=== PATIENT | female | born 1985 | race Caucasian/White ===

== ENCOUNTER 2021-06-06 06:23 | Inpatient (IN) ==
[2021-06-06] MEDS ORDERED: LIDOCAINE 1% LOCAL 20 ML VIAL ONE (06:33)
[2021-06-06] MEDS ORDERED: OXYTOCIN 30 UNITS/500 ML BAG IV PRN ×2 (06:41→07:01)
[2021-06-06] MEDS ORDERED: OXYTOCIN 10 UNITS/ML 10ML VIAL IM ONE (06:41)
[2021-06-06] MEDS ORDERED: LACTATED RINGER'S 1,000 ML IV PRN (06:41)
--- NOTE | 2021-06-06 06:59 | Delivery Summary ---
Vaginal Delivery Summary Date of Service June 06, 2021 Vaginal Delivery Summary (Delivered patient only; for [facility] who were not in-house although this was their patient) DIAGNOSES: 1. Martinez intrauterine at 39 1/7 gestation. 2. Spontaneous onset of labor. 3. Group B Streptococcus Pos. PROCEDURE: Spontaneous vaginal delivery and repair of left labial and second degree perineal laceration. SURGEON: Celsa Miranda MD. ROLLED HAM LACER: None. ESTIMATED BLOOD LOSS: 250 mL. COMPLICATIONS: None. PLACENTA: Spontaneous and intact with a 3-vessel cord. DISPOSITION: Stable to labor and delivery. DESCRIPTION: The patient followed with [facility] for OB care, called the on- call provider and was advised to come to Labor and Delivery. On arrival she was found to be completely dilated with uncontrollable urge to push, and no [facility] doctor was in house, so the nurses asked me to attend this delivery. I came to the delivery room and found the patient without IV access yet established, reportedly unable to be added to the electronic monitoring system as her record was not able to be found in the hospital EHR at that time, but with bedside heart tones audible and reassuring. She was reported to me as a with GBS positive whose water had broken at home at 0400, and whose prior vaginal delivery had been uncomplicated. She was quickly prepped for delivery. She pushed well and brought the head to in OA position. She delivered the with a compound presentation of the left/anterior arm, which resulted in a tear of the left labia minora that occurred after the head was already delivered / as the arm pushed past. There was no nuchal cord. The left shoulder was anterior. The left arm was delivered in a physiologic manner, and the shoulders and body delivered without any difficulty, and the infant was placed on the maternal abdomen. It was vigorous and moving all extremities, and making respiratory efforts. The cord was doubly clamped by the MD and then cut. The placenta delivered spontaneously and was noted to be intact and with a 3VC. The cervix, vagina and perineum were examined and were found to have a shallow second degree tear at the perineum in addition to the above left labial tear. Repair was explained to the patient as involving local lidocaine infiltration and being optional but recommended. She accepted repair, and 1% plain lidocaine was infiltrated through both areas. The labium was sewn using 4-0 vicryl and the perineum was closed using 3-0 in the usual manner, with a crown suture and subcuticular closure of the perineum. 10u IM pitocin was given during repair, by the nurses. The fundus was firm and lochia minimal immediately after delivery. [facility] Vaginal Delivery Charge Vaginal Delivery Codes: 24508 vaginal delivery Delivery Type Details: (Delivered patient only; for [facility] who were not in- house although this was their patient)
[2021-06-06] MEDS ORDERED: HYDROCORTISONE ACETATE 25 MG SUPP PR PRN (07:01)
[2021-06-06] MEDS ORDERED: BENZOCAINE 20% AER SPR 82.5 GM CAN EXT PRN (07:01)
[2021-06-06] MEDS ORDERED: ACETAMINOPHEN 325 MG TAB PO PRN (07:01)
[2021-06-06] MEDS ORDERED: DIPHTHERIA/TETANUS/PERTUSSIS 0.5 ML SYR/VIAL IM ONE (07:01)
[2021-06-06 07:22] LABS: Hematocrit (blood only) 37.6 % (37-47); Hemoglobin 12.6 g/dL (12.0-16.0); Mean Corpuscular Hemoglobin 30.2 pg (25-34); Mean Corpuscular Hgb Conc 33.5 g/dL (32-36); Mean Corpuscular Volume 90.2 fL (80-100); Mean Platelet Volume 9.8 fL (7.4-10.4); Platelet Count 210 K/uL (130-400); RDW Coefficient of Variation 13.7 % (11.5-14.5); RDW Standard Deviation 44.8 fL (36.4-46.3); Red Blood Count 4.17 M/uL (4.2-5.4); White Blood Count 12.76 K/uL (4.8-10.8)
[2021-06-06] MEDS: IBUPROFEN 600 MG TAB PO PRN ×4 (07:42→23:26)
[2021-06-06] MEDS ORDERED: SERTRALINE HCL 100 MG TABLET PO SCH (09:00)
[2021-06-06] MEDS: PRENATAL VITAMIN 1 TAB PO SCH (10:45)
[2021-06-06] MEDS: FERROUS SULFATE 325 MG TAB PO SCH (10:45)
[2021-06-06] MEDS: DOCUSATE SODIUM 100 MG CAP PO SCH ×2 (10:45→19:27)
[2021-06-07 07:46] LABS: Hematocrit (blood only) 34.7 % (37-47); Hemoglobin 11.6 g/dL (12.0-16.0); Mean Corpuscular Hemoglobin 29.9 pg (25-34); Mean Corpuscular Hgb Conc 33.4 g/dL (32-36); Mean Corpuscular Volume 89.4 fL (80-100); Mean Platelet Volume 9.8 fL (7.4-10.4); Platelet Count 196 K/uL (130-400); RDW Coefficient of Variation 13.7 % (11.5-14.5); RDW Standard Deviation 45.1 fL (36.4-46.3); Red Blood Count 3.88 M/uL (4.2-5.4); White Blood Count 13.66 K/uL (4.8-10.8)
[2021-06-07] MEDS: PRENATAL VITAMIN 1 TAB PO SCH (08:17)
[2021-06-07] MEDS: FERROUS SULFATE 325 MG TAB PO SCH (08:17)
[2021-06-07] MEDS: IBUPROFEN 600 MG TAB PO PRN ×3 (08:17→23:07)
[2021-06-07] MEDS: DOCUSATE SODIUM 100 MG CAP PO SCH ×2 (08:17→21:26)
--- NOTE | 2021-06-07 09:54 | Obstetrical Progress Note ---
Date of Service June 07, 2021 Subjective Ambulation: ambulating normally Voiding: no voiding problems Passing Gas:: Yes Diet Tolerance:: regular diet Lochia:: Small Feeding Type:: breast feeding Current Pain Level(1-10): 0 doing well Physical Exam Constitutional WD/WN, vitals as above abdomen soft no edema neg Kailash's tent d/c in AM Results & Data ([facility]) Vital Signs (Past 12 Hours) Vital Signs Temp Pulse Pulse Resp BP BP Pulse Ox 06/07/21 09:17 36.7 C 71 16 108/54 L 98 06/07/21 07:26 36.7 C 68 16 116/71 98 06/07/21 03:25 36.7 C 64 16 107/70 98 06/06/21 23:00 36.6 C 70 16 118/78 96 Laboratory Results Laboratory Results - last 72 hr 06/06/21 06/06/21 06/07/21 06:30 07:04 07:29 WBC 12.76 H RBC 4.17 L Hgb 12.6 Hct 37.6 MCV 90.2 MCH 30.2 MCHC 33.5 RDW Std Deviation 44.8 RDW Coeff of Rashida 13.7 Plt Count 210 MPV 9.8 SARS-CoV-2, RNA, NAAT NEGATIVE Blood Type O Negative Antibody Screen NEGATIVE Screen Negative 06/07/21 07:29 WBC 13.66 H RBC 3.88 L Hgb 11.6 L Hct 34.7 L MCV 89.4 MCH 29.9 MCHC 33.4 RDW Std Deviation 45.1 RDW Coeff of Rashida 13.7 Plt Count 196 MPV 9.8 SARS-CoV-2, RNA, NAAT Blood Type Antibody Screen Screen
[2021-06-07] MEDS ORDERED: bisacodyL 5 MG TABEC PO SCH (20:00)
[2021-06-08] MEDS ORDERED: bisacodyL 10 MG SUPP PR PRN
[2021-06-08 08:15] LABS: Hematocrit (blood only) 35.1 % (37-47); Hemoglobin 11.8 g/dL (12.0-16.0)
[2021-06-08] MEDS: DOCUSATE SODIUM 100 MG CAP PO SCH (08:50)
[2021-06-08] MEDS: FERROUS SULFATE 325 MG TAB PO SCH (08:50)
[2021-06-08] MEDS: PRENATAL VITAMIN 1 TAB PO SCH (08:50)
--- NOTE | 2021-06-08 09:01 | Obstetrical Progress Note ---
Date of Service June 08, 2021 Assessment & Plan Admission and Anticipated Discharge Date Admission Date: June 06, 2021 Subjective Patient is seen and examined. She feels well, no complaints. Ambulating without dizziness Voiding without difficulty Tolerating regular diet with out N&V Bleeding is minimal No fever/ chills/ CP/ SOB/ N&V/ Leg pain Breast feeding without problems Vital Signs Temp Pulse Pulse Resp BP BP Pulse Ox 06/07/21 23:05 36.8 C 76 16 92/62 L 98 06/07/21 19:50 36.8 C 78 16 112/75 98 06/07/21 09:17 36.7 C 71 16 108/54 L 98 Lab Results 06/06/21 06/06/21 06/07/21 Range/Units 06:30 07:04 07:29 WBC 12.76 H (4.8-10.8) K/uL RBC 4.17 L (4.2-5.4) M/uL Hgb 12.6 (12.0-16.0) g/dL Hct 37.6 (37-47) % MCV 90.2 (80-100) fL MCH 30.2 (25-34) pg MCHC 33.5 (32-36) g/dL RDW Std Deviation 44.8 (36.4-46.3) fL RDW Coeff of Rashida 13.7 (11.5-14.5) % Plt Count 210 (130-400) K/uL MPV 9.8 (7.4-10.4) fL SARS-CoV-2, RNA, NAAT NEGATIVE (NEGATIVE) Blood Type O Negative Antibody Screen NEGATIVE Screen Negative (Negative) 06/07/21 06/08/21 Range/Units 07:29 07:33 WBC 13.66 H (4.8-10.8) K/uL RBC 3.88 L (4.2-5.4) M/uL Hgb 11.6 L 11.8 L (12.0-16.0) g/dL Hct 34.7 L 35.1 L (37-47) % MCV 89.4 (80-100) fL MCH 29.9 (25-34) pg MCHC 33.4 (32-36) g/dL RDW Std Deviation 45.1 (36.4-46.3) fL RDW Coeff of Rashida 13.7 (11.5-14.5) % Plt Count 196 (130-400) K/uL MPV 9.8 (7.4-10.4) fL SARS-CoV-2, RNA, NAAT (NEGATIVE) Blood Type Antibody Screen Screen (Negative) PE: General: Alert, orientedx3, NAD Abd: soft, NT, fundus firm, below Umbilicus Perineum intact, Lochia rubra minimal Ext; NT, no edema AP: 36 yo s/p , ppd# 2 VSS Afebrile doing well Continue routine care All questions were answered D/C home , f/u in office Results & Data ([facility]) Vital Signs (Past 12 Hours) Vital Signs Temp Pulse Resp BP Pulse Ox 06/07/21 23:05 36.8 C 76 16 92/62 L 98
== END 2021-06-08 12:05 | disposition home or self-care (01) | DRG 807 ==
LOC: 4S1 06:23 → 4E2 10:56